=== PATIENT | female | born 1950 | race African-American/Black ===

== ENCOUNTER 2025-09-10 15:14 | Inpatient (IN) | payer MEDICARE, MEDICAID ==
[~2025-09-10] VITALS: Ht 167.6 cm; Wt 79.4 kg
[2025-09-10] MEDS: ACETAMINOPHEN 325MG TABLET PO ONE (15:39)
[2025-09-10] MEDS: MORPHINE SULFATE 4 MG/ML INJ (FOR IV/IM USE) IM ONE (18:46)
[2025-09-10 21:15] LABS: BASOPHILS % 0.4 % (0.0-2.0); EOSINOPHILS % 0.0 % (0.0-5.0); HEMATOCRIT. 39.8 % (36.0-48.0); HEMOGLOBIN. 13.1 g/dL (12.0-16.0); LYMPHOCYTES % 9.4 % (20.0-50.0); MEAN PLATELET VOLUME 7.1 fl (7.4-10.4); MONOCYTES % 3.0 % (2.0-8.0); NEUTROPHILS % 87.2 % (40.0-76.0); PLATELET 355 x1000/uL (130-400); RED BLOOD CELL COUNT 4.75 mill/uL (4.2-5.4); RED CELL DISTRIBUTION WIDTH 16.5 % (11.6-14.6)
[2025-09-10 21:31] LABS: CREATININE 1.0 mg/dL (0.6-1.0); UREA NITROGEN BLOOD 11 mg/dL (9-23)
[2025-09-10] MEDS: AMLODIPINE 10MG TABLET PO ONE (21:31)
[2025-09-10] MEDS: LOSARTAN 100 MG TABLET PO ONE (21:32)
[2025-09-10] MEDS ORDERED: MORPHINE SULFATE 4 MG/ML INJ (FOR IV/IM USE) IV ONE (22:15)
[2025-09-10] MEDS ORDERED: MAGNESIUM/ALUMINUM HYDROXIDE/SIMETHICONE 30ML UDC PO PRN (22:15)
[2025-09-10] MEDS ORDERED: ONDANSETRON HCL 4MG/2ML INJ IV PRN (22:15)
[2025-09-10] MEDS ORDERED: GUAIFENESIN 200MG/10ML SUGAR FREE UDC PO PRN (22:15)
[2025-09-10] MEDS ORDERED: POTASSIUM CHLORIDE 40 MEQ in DEXT 5% WATER 230 ML IV ONE (22:45)
[2025-09-10] MEDS ORDERED: KETOROLAC 30MG/ML VIAL IV NR (23:00)
[2025-09-10] MEDS ORDERED: KCL 20MEQ/100ML X 2 FOR TOTAL KCL 40MEQ/200ML IV SCH (23:00)
[2025-09-10] MEDS: LABETALOL 5MG/ML 4ML INJ IV SCH (23:55)
[2025-09-11] MEDS ORDERED: DEXT 5%/0.9% NACL 1,000 ML IV SCH (00:15)
[2025-09-11] MEDS ORDERED: HYDRALAZINE HCL 10MG TABLET PO PRN (01:00)
[2025-09-11] MEDS: CLONIDINE 0.1MG TABLET PO PRN (01:16)
[2025-09-11 01:20] VITALS: BP 189/79; PULSE 79; RESP 23; TEMP 36.9184
[2025-09-11] MEDS ORDERED: HYDRALAZINE 20MG/ML VIAL IV ONE (04:30)
[2025-09-11] MEDS: HYDRALAZINE 10 MG in SODIUM CHLORIDE 0.9% 49.5 ML IV NR (05:09)
[2025-09-11] MEDS: LORAZEPAM 0.5MG TABLET PO NR (05:10)
[2025-09-11] MEDS ORDERED: DEXTROSE 50% WATER 50ML SYRINGE IV PRN (05:30)
[2025-09-11] MEDS ORDERED: KETOROLAC 30MG/ML VIAL IV PRN (06:00)
[2025-09-11] MEDS ORDERED: KETOROLAC 15MG/ML VIAL IV PRN (06:45)
[2025-09-11] MEDS: KCL 20MEQ/100ML X 2 FOR TOTAL KCL 40MEQ/200ML IV SCH (06:56)
[2025-09-11] MEDS: NIFEDIPINE XL 90MG TAB PO NR (07:02)
[2025-09-11] MEDS ORDERED: CLONIDINE 0.1MG TABLET PO PRN (07:20)
[2025-09-11] MEDS: BLOOD SUGAR DIAGNOSTIC STRIP TEST SCH (07:21)
[2025-09-11 08:00] VITALS: BP 154/76; PULSE 71; RESP 18; TEMP 36.1; O2SAT 98
[2025-09-11] MEDS: HYDRALAZINE HCL 50MG TABLET PO SCH (08:00)
[2025-09-11 08:13] LABS: CREATININE 0.8 mg/dL (0.6-1.0); TRIGLYCERIDE 106 mg/dL (0-150); UREA NITROGEN BLOOD 12 mg/dL (9-23)
[2025-09-11 08:14] LABS: LDL CHOLESTEROL 54 mg/dL (5-100)
[2025-09-11 08:17] LABS: BASOPHILS % 0.5 % (0.0-2.0); EOSINOPHILS % 0.0 % (0.0-5.0); HEMATOCRIT. 41.3 % (36.0-48.0); HEMOGLOBIN. 13.5 g/dL (12.0-16.0); LYMPHOCYTES % 14.7 % (20.0-50.0); MEAN PLATELET VOLUME 7.1 fl (7.4-10.4); MONOCYTES % 5.6 % (2.0-8.0); NEUTROPHILS % 79.2 % (40.0-76.0); PLATELET 372 x1000/uL (130-400); RED BLOOD CELL COUNT 4.97 mill/uL (4.2-5.4); RED CELL DISTRIBUTION WIDTH 16.3 % (11.6-14.6)
[2025-09-11] MEDS: LISINOPRIL 40MG TABLET PO SCH (09:04)
[2025-09-11] MEDS: LEVETIRACETAM 500MG PREMIX 100 ML IV SCH (09:05)
[2025-09-11] MEDS: FAMOTIDINE 20MG/2ML VIAL IV SCH (09:05)
[2025-09-11] MEDS: ENOXAPARIN 40MG/0.4ML SYR SUBCUT SCH (09:07)
[2025-09-11 09:46] LABS: PHOSPHORUS 3.3 mg/dL (2.5-4.9)
[2025-09-11] MEDS ORDERED: ALBU18HF2 IH (11:03)
[2025-09-11 12:00] VITALS: BP 143/63; PULSE 77; RESP 17; TEMP 36.2; O2SAT 100
[2025-09-11 16:00] VITALS: BP 114/58; PULSE 81; RESP 17; TEMP 36.3; O2SAT 99
[2025-09-11 20:00] VITALS: BP 131/60; PULSE 75; RESP 17; TEMP 36.4; O2SAT 100
[2025-09-11] MEDS: LEVETIRACETAM 500MG TABLET PO SCH (20:56)
[2025-09-12] VITALS: BP 145/72; PULSE 79; RESP 17; TEMP 36.4; O2SAT 98
[2025-09-12 04:00] VITALS: BP 143/58; PULSE 81; RESP 18; TEMP 36.4; O2SAT 98
[2025-09-12] MEDS: DOCUSATE SODIUM 100MG CAPSULE PO PRN (05:16)
[2025-09-12 06:12] LABS: BASOPHILS % 0.4 % (0.0-2.0); EOSINOPHILS % 0.1 % (0.0-5.0); HEMATOCRIT. 39.4 % (36.0-48.0); HEMOGLOBIN. 13.1 g/dL (12.0-16.0); LYMPHOCYTES % 19.5 % (20.0-50.0); MEAN PLATELET VOLUME 7.2 fl (7.4-10.4); MONOCYTES % 12.0 % (2.0-8.0); NEUTROPHILS % 68.0 % (40.0-76.0); PLATELET 319 x1000/uL (130-400); RED BLOOD CELL COUNT 4.71 mill/uL (4.2-5.4); RED CELL DISTRIBUTION WIDTH 16.1 % (11.6-14.6)
[2025-09-12 06:20] LABS: UREA NITROGEN BLOOD 21.0 mg/dL (9-23)
[2025-09-12 06:36] LABS: CREATININE 1.4 mg/dL (0.6-1.0)
[2025-09-12 08:00] VITALS: BP 128/58; PULSE 75; RESP 19; TEMP 36.3; O2SAT 100
[2025-09-12] MEDS ORDERED: NALOXONE HCL 0.4MG/ML VIAL IV PRN (10:00)
[2025-09-12] MEDS ORDERED: ACETAMINOPHEN 325MG TABLET PO PRN (10:00)
[2025-09-12] MEDS: TRAMADOL 50MG TABLET PO PRN (10:12)
[2025-09-12 12:07] VITALS: BP 122/56; PULSE 71; RESP 20; TEMP 36.8; O2SAT 95
[2025-09-12 15:53] VITALS: BP 123/63; PULSE 74; RESP 22; TEMP 36.2; O2SAT 96
[2025-09-12 20:00] VITALS: BP 119/64; PULSE 87; RESP 20; TEMP 36.3; O2SAT 99
[2025-09-13] VITALS: BP 124/46; PULSE 71; RESP 20; TEMP 36.2; O2SAT 96
[2025-09-13 04:00] VITALS: BP 117/58; PULSE 80; RESP 20; TEMP 36.3; O2SAT 97
[2025-09-13 06:21] LABS: BASOPHILS % 0.4 % (0.0-2.0); EOSINOPHILS % 0.3 % (0.0-5.0); HEMATOCRIT. 37.2 % (36.0-48.0); HEMOGLOBIN. 12.7 g/dL (12.0-16.0); LYMPHOCYTES % 20.8 % (20.0-50.0); MEAN PLATELET VOLUME 7.5 fl (7.4-10.4); MONOCYTES % 11.6 % (2.0-8.0); NEUTROPHILS % 66.9 % (40.0-76.0); PLATELET 337 x1000/uL (130-400); RED BLOOD CELL COUNT 4.49 mill/uL (4.2-5.4); RED CELL DISTRIBUTION WIDTH 15.9 % (11.6-14.6)
[2025-09-13 06:41] LABS: UREA NITROGEN BLOOD 32.0 mg/dL (9-23)
[2025-09-13 07:18] LABS: CREATININE 1.9 mg/dL (0.6-1.0)
[2025-09-13 08:00] VITALS: BP 103/45; PULSE 77; RESP 20; TEMP 36.3; O2SAT 95
[2025-09-13 10:27] VITALS: PULSE 75; RESP 16; O2SAT 97
[2025-09-13] MEDS: IPRATROPIUM/ALBUTEROL 0.5-3(2.5)MG/3ML NEB HHN PRN (10:27)
[2025-09-13 12:00] VITALS: BP 100/58; PULSE 74; RESP 20; TEMP 37.2; O2SAT 95
[2025-09-13 12:34] VITALS: BP 100/58; PULSE 74; RESP 20; TEMP 99
[2025-09-13] MEDS ORDERED: FAMOTIDINE 20MG TABLET PO SCH (21:00)
== END 2025-09-13 15:50 | disposition home health service (06) | DRG 552 ==
LOC: ER 15:14 → 8EST 22:11 → EDBEDREQTM 22:31 → EDBEDREQ 22:31 → ENRESERV 23:45
PROVIDERS: ADMIT Hospitalist; ATTEND Hospitalist
DX: S32.019A Unspecified fracture of first lumbar vertebra, initial encounter for closed fracture (principal); I16.0 Hypertensive urgency; E11.9 Type 2 diabetes mellitus without complications; G40.909 Epilepsy, unspecified, not intractable, without status epilepticus; M43.16 Spondylolisthesis, lumbar region; I10 Essential (primary) hypertension; E87.6 Hypokalemia; E78.00 Pure hypercholesterolemia, unspecified; Z86.73 Personal history of transient ischemic attack (TIA), and cerebral infarction without residual deficits; W18.30XA Fall on same level, unspecified, initial encounter; Y93.89 Activity, other specified; Y92.89 Other specified places as the place of occurrence of the external cause; Y99.8 Other external cause status
CPT/HCPCS: 36415; 72131; 72148; 73700; 80048; 80061; 82550; 82962; 83036; 83735; 84100; 84145; 85025; 85379; 93970; 94640; 96372; 97162; 97166; 99285; J0360; J1308; J1650; J1953; J2270; J3480; J3490